=== PATIENT | female | born 1960 | race Caucasian/White ===

== ENCOUNTER 2024-10-28 22:07 | Inpatient (IN) | payer OTHER, SELFPAY ==
[2024-10-28] VITALS (7 sets, daily range): BP systolic 104–156; BP diastolic 66–98; BMI 22.1
[2024-10-28 17:22] LABS: % Basophils 0.2 % (0-2); % Eosinophils 0.9 % (0-6); % Immature Granulocytes 0.3 % (0-0.5); % Lymphocytes 16.8 % (20.5-51.1); % Monocytes 9.1 % (1.7-9.3); % Neutrophils 72.7 % (42.2-75.2); Absolute Eosinophils 0.1 10^3/uL (0-0.7); Absolute Lymphocytes 1.8 10^3/uL (1.2-3.4); Absolute Neutrophils 7.8 10^3/uL (1.4-6.5); Hematocrit 43.4 % (37.0-47.0); Hemoglobin 14.8 g/dL (12.0-16.0); Mean Corp Hgb Conc. 34.1 g/dL (33.0-37.0); Mean Corpuscular Hgb 31.1 pg (27.0-31.0); Mean Corpuscular Volume 91.2 fL (81.0-99.0); Mean Platelet Volume 8.7 fL (7.4-10.4); Nucleated Red Blood Cells % 0 %; Platelet Count 258 10^3/uL (130-400); Red Blood Cell Count 4.76 10^6/uL (4.20-5.40); Red Cell Dist. Width 11.9 % (11.5-14.5); White Blood Cell Count 10.7 10^3/uL (4.8-10.8)
[2024-10-28 17:43] LABS: ALT (SGPT) 35 U/L (0-35); AST (SGOT) 28 U/L (14-36); Albumin 4.6 g/dl (3.5-5.0); Alkaline Phosphatase 85 U/L (38-126); Blood Urea Nitrogen 16 mg/dl (7-17); Carbon Dioxide 30 mmol/L (22-30); Chloride 99 mmol/L (98-107); Glucose 151 mg/dl (70-99); Potassium 4.5 mmol/L (3.5-5.1); Sodium 138 mmol/L (135-145); Total Bilirubin 0.6 mg/dl (0.2-1.3); Total Protein 7.6 g/dl (6.3-8.2); eGFR > 60.00
[2024-10-28 17:45] LABS: COVID-19 Antigen Negative (Negative)
[2024-10-28] MEDS: DECADRON 10 MG IV (19:42)
[2024-10-28] MEDS: DUONEB 3 ML INH ×2 (19:42→20:54)
--- NOTE | 2024-10-28 20:36 | ED.GENMED ---
History of Present Illness
General
Chief Complaint: Breathing Problem
Source: patient
Exam Limitations: none
Time Seen by Provider: 10/28/24 19:12
Nursing documentation reviewed up to this point in time: agreed with
History of Present Illness
History of Present Illness:
64-year-old female past medical history of hypertension hyperlipidemia, COPD presenting to the emergency department today with concerns of upper respiratory symptoms over the past 9 days. Seem to start with likely viral syndrome was seen in urgent
care 4 days ago was told that she had bronchitis and was sent home. She claims that she does have a remote history of PE not currently anticoagulated. She was concerned that this was a possibility. Denies specific chest pain but has had shortness
of breath. Has had ongoing cough.
Past History
Past History
ED Past Medical History: COPD, HTN and Hypercholesterolemia
ED Past Surgical History: None
Patient has exhibited threatening behavior?: No
Social History
Tobacco: Former smoker (Quit 5 to 6 years ago)
Alcohol: None
Personal: Single
Living: with family (Resides with her daughter)
Employment: Employed
Family History
Family History: Other (Noncontributory)
Review of Systems
Review of Systems
Allergies reviewed?: Yes
All Other Systems: ROS reviewed and negative except as documented in HPI and ROS
Phy Exam
Physical Exam
Physical Exam:
GENERAL: Alert , in no apparent distress
EYE: pupils equal and reactive
NECK: Supple, no significant adenopathy.
ENT: o/p clr, mmm.
CARDIAC: Regular rate and rhythm .
LUNGS: Diffuse expiratory wheezing
ABDOMEN: Soft, without focal tenderness, no r/g, no cvat
NEUROLOGICAL: Alert and oriented, no focal neuro deficits
SKIN: Warm and dry, skin intact.
MUSCULOSKELETAL: No edema, well perfused.
PSYCH: Normal and appropriate interaction.
Scores
Heart Failure Risk
Heart Failure Risk Score: Not Applicable
Course
Orders/Labs/Results
Orders:
Orders
10/28/24 17:05
Electrocardiogram (*1) Urgent
Reason for Study: Shortness of Breath
EKG- Treatment ONCE
10/28/24 17:14
COVID-19 Antigen Urgent
Source: Nasal Swab
Complete Blood Count/With Diff Urgent
Comprehensive Metabolic Panel Urgent
Influenza A+B Rapid Molecular Urgent
JENNIFER Source: Nasal Swab
Specimen Description:
10/28/24 19:31
CT Chest PE Study Urgent
Comment:
Reason For Exam: CP sob, hx of PE not anticoagulated
Dexamethasone Sod Phosphate [Decadron] 10 mg IV NOW STA
Ipratropium/Albuterol Sulfate [Duoneb] 3 ml INH R NOW ONE
10/28/24 20:48
Ipratropium/Albuterol Sulfate [Duoneb] 3 ml INH R NOW ONE
10/28/24 20:49
0.9% Sodium Chloride 1000 ml [Nss] 1,000 ml IV BOLUS
Abnormal Lab Results
10/28/24
17:14
MCH 31.1 H pg
(27.0-31.0)
Absolute Neuts (auto) 7.8 H 10^3/uL
(1.4-6.5)
Absolute Monos (auto) 1.0 H 10^3/uL
(0.1-0.6)
Lymphocytes % 16.8 L %
(20.5-51.1)
Glucose 151 H mg/dl
(70-99)
10/28/24 17:14
10/28/24 17:14
Vital Signs
Initial and Last Documented VS:
Initial Vital Signs
Temp Pulse Resp BP Pulse Ox
97.9 F 130 18 156/98 94
10/28/24 17:00 10/28/24 17:00 10/28/24 17:00 10/28/24 17:00 10/28/24 17:00
Last Documented Vital Signs
Temp Pulse Resp BP Pulse Ox
97.9 F 112 22 104/73 100
10/28/24 17:00 10/28/24 20:02 10/28/24 20:02 10/28/24 20:02 10/28/24 20:02
MDM/Problems Addressed
MDM/Problems Addressed:
64-year-old female presenting to the emergency department with concerns of shortness of breath cough. Here on arrival vital signs showing elevated heart rate slightly hypertensive. Patient did have some wheezing on examination was given a DuoNeb
as well as a steroid did have improving heart rate blood pressure. Labs without emergent findings. EKG here normal. Patient does have a history of PE with worsening shortness of breath and tachycardia concerning the CT PE was performed. CT PE
without emergent findings. Nodule was seen. This was explained to the patient she claims that she is aware of this and does follow-up as an outpatient for this. Otherwise patient with ongoing wheezing here amatory pulse ox performed with pulse ox
dropping to the mid 80s she appeared very short of breath while doing so. Considering this patient was ordered additional nebulizer treatment will be admitted overnight for further treatment and monitoring.
*Critical Care Note
Total Time (30-74mins, 75-104mins- exclusive of procedures): Not Applicable
ED Attending Note
-
Portions of this chart may have been created with voice recognition software.� Occasional wrong word or��sound alike� substitutions may have occurred due to the inherent limitations of voice recognition software.
Discharge Plan
Departure
Patient Disposition: Admit
Date of Disposition: 10/28/24
Time of Disposition: 20:52
Admit to: Med/Surg
Admit to doctor: Ever
Presentation/result/management discussed w/ accepting MD/DO: Hospitalist
Patient with high blood pressure during this ER visit?: No
Condition: Good
Covid-19: Not Applicable
Discharge Problem:
COPD exacerbation
Prescriptions:
No Action
lisinopril 10 MG tablet
10 mg PO HS
ascorbic acid (vitamin C) [Vitamin C] 500 MG tablet
500 mg PO DAILY
zinc 50 MG tablet
50 mg PO DAILY
metformin 500 MG tablet extended release 24 hr
1,000 mg PO QPM@1700
multivitamin with folic acid [Tab-A-Bolivar] 1 TABLET tablet
1 tab PO DAILY
levalbuterol HCl 1.25 MG/3 ML solution for nebulization
1.25 mg inhalation R Q6HPRN PRN (Reason: sob wheezing) 30 Days Qty: 120 0RF
azelastine 1 SPRAY aerosol,spray
2 spray intranasal BID 30 Days Qty: 1 0RF
apixaban [Eliquis] 5 MG tablet
5 mg PO BID 30 Days Qty: 60 2RF
Rx Instructions:
start after 1st week dosing eliquis completed
sennosides-docusate sodium 1 TABLET tablet
1 tab PO BIDPRN PRN (Reason: constipation) 7 Days Qty: 14 0RF
benzonatate 100 MG capsule
100 mg PO TIDPRN PRN (Reason: cough) 7 Days Qty: 21 0RF
budesonide 0.5 MG/2 ML suspension for nebulization
0.5 mg inhalation R BID 30 Days Qty: 60 0RF
albuterol sulfate 1 PUFF HFA aerosol inhaler
2 puff inhalation R Q4HPRN PRN (Reason: sob/wheezing)
guaifenesin [Mucus Relief ER] 600 MG tablet extended release 12hr
1,200 mg PO Q12H
amoxicillin-pot clavulanate 1 TABLET tablet
1 tab PO Q12 7 Days Qty: 14 0RF
Referrals:
NONE,* [Family Provider] -
Interventions
Interventions:
*Risk Screen - Suicide Last Done: 10/28/24 17:00
*General Assessment Last Done: 10/28/24 17:00
*Neglect/Abuse Screening Last Done: 10/28/24 17:00
*ED- Fall Risk Assessment Last Done: 10/28/24 19:35
*ED COVID-19 Vaccine History Last Done: 10/28/24 17:00
ED- Cardiac Assessment Last Done: 10/28/24 19:35
ED- Pulmonary Assessment Last Done: 10/28/24 19:35
Discharge Date and Time
Print Language: CONGOLESE
[2024-10-28] MEDS: NSS 1000 IV (20:54)
--- NOTE | 2024-10-28 21:46 | HPS.HSE ---
Family Physician
-
Family Physician: Tameka Foster
Chief Complaint
-
Cough and shortness of breath
History of Present Illness
64-year-old female with past medical history significant for COPD, prior history of pulmonary embolism status post anticoagulation now off, hypertension, hyperlipidemia who presents to the emergency department after several days of cough productive
of greenish sputum and mild shortness of breath.
Patient reports that symptoms began several days ago initially with to nasal congestion on rhinorrhea and then cough productive of clear sputum. 3 days ago she was started on cefprozil for acute bronchitis. Despite this medication the patient has
been having worsening shortness of breath ongoing productive cough. She also reports some dyspnea on exertion. She denies fevers or chills. She has no known sick contacts. She denies any recent travel.
Patient reports history of pneumonia about 3 years ago. Denies any recent hospitalizations. Denies recurrent episodes of acute bronchitis requiring steroids or antibiotics. She does use Trelegy at home daily. She denies smoking. She has no
history of congestive heart failure. Denies peripheral edema orthopnea or PND. She denies having any chest pain. She came to the emergency department due to concern of recurrence of pulmonary embolism.
In the Emergency Department she was initially treated with names and steroids. She was ambulated and then she desatted to the low 80s.
She had a temp of nine 7.9, blood pressure was 120/69 and she was tachycardic to 105 with respiratory rate of 20. ECG with sinus tachycardia at 120, and unchanged from prior. CBC was unremarkable. Electrolytes BUN/creatinine were all in normal
range. COVID test was negative. Elicited was negative.
CT of the chest with PE protocol was negative for PE. It did show the old numerous bilateral upper lobe groundglass opacities and small nodules which could be consistent with infection. There is a 1 cm slightly irregular subpleural nodule in the
posterior left upper lobe apex for which malignancy cannot be excluded. Recommend PET scan with dual point imaging.
Medical History
Past Medical History
Past Medical History: Reports COPD, NIDDM and Other (Pulmonary embolism status post anticoagulation now completed in 2022.)
Past Surgical History: Reports Cholecystectomy and Gynocological (Tube ligation)
Social History
Tobacco: Former Smoker
Alcohol: Occasional
Drug: None
Personal:
Living: With Family
Family History
Family History: Not pertinent
Allergies / Home Medications
Allergies reflects when Allergies were last updated in [employer].
Home Medications with original date entered in [employer]
Allergy/Medication List:
Allergies
Allergy/AdvReac Type Severity Reaction Status Date / Time
No Known Allergies Allergy Verified 10/28/24 17:04
Home Medications
ascorbic acid (vitamin C) 500 mg tablet (Vitamin C) 500 mg PO DAILY Supplement 08/13/21
lisinopril 10 mg tablet 10 mg PO HS Blood pressure 08/13/21
metformin 500 mg tablet,extended release 24 hr 1,000 mg PO QPM@1700 Diabetes 08/13/21
multivitamin with folic acid 400 mcg tablet (Tab-A-Bolivar) 1 tab PO DAILY Supplement 08/13/21
zinc 50 mg tablet 50 mg PO DAILY Supplement 08/13/21
apixaban 5 mg tablet (Eliquis) 5 mg PO BID 30 days #60 tabs 08/15/21
azelastine 137 mcg (0.1 %) nasal spray 2 spray intranasal BID 30 days ##1 08/15/21
benzonatate 100 mg capsule 100 mg PO TIDPRN PRN cough 7 days #21 caps 08/15/21
budesonide 0.5 mg/2 mL suspension for nebulization 0.5 mg (2 mL) inhalation R BID 30 days ##60 08/15/21
levalbuterol HCl 1.25 mg/3 mL solution for nebulization 1.25 mg (3 mL) inhalation R Q6HPRN PRN sob wheezing 30 days ##120 08/15/21
sennosides 8.6 mg-docusate sodium 50 mg tablet 1 tab PO BIDPRN PRN constipation 7 days #14 tabs 08/15/21
albuterol sulfate 90 mcg/actuation aerosol inhaler 2 puff inhalation R Q4HPRN PRN sob/wheezing 08/25/21
guaifenesin 600 mg tablet, extended release 12 hr (Mucus Relief ER) 1,200 mg PO Q12H Congestion 08/25/21
amoxicillin 875 mg-potassium clavulanate 125 mg tablet 1 tab PO Q12 7 days #14 tabs 08/27/21
Review of Systems
-
History Source: Patient
Constitutional: Reports No Symptoms
EENT: Reports Runny Nose
Respiratory: Reports Cough and Trouble Breathing
Cardiac: Reports No Symptoms
Abdomen/GI: Reports No Symptoms
: Reports No Symptoms
Musculoskeletal: Reports No Symptoms
Skin: Reports No Symptoms
Neurological: Reports No Symptoms
Endocrine: Reports No Symptoms
Hematologic/Lymphatic: Reports No Symptoms
Psych: Reports No Symptoms
Physical Exam
Vital Signs
Vital Signs
Temp Pulse Resp BP Pulse Ox
97.9 F 105 20 119/69 97
10/28/24 17:00 10/28/24 21:00 10/28/24 21:00 10/28/24 21:00 10/28/24 21:00
Physical Exam
General: Well Developed and Comfortable
HEENT: NormoCephalic, Anicteric, Moist mucous membranes and Atraumatic
Respiratory: Wheezes, Accessory Resp Muscle Use and Decreased Breath Sounds
Cardiac: S1/S2 and Regular Rhythm
Breast: Deferred by me
GI: Soft, Non Tender, Non Distended and Normal Bowel Sounds
Rectal: Deferred by Provider
Genito-urinary: Deferred by me
Musculoskeletal: No Clubbing, No Cyanosis and No Edema
Neuro: AO x 3 and Nonfocal/grossly intact
Hematologic/Lymphatic: No Lymphadenopathy
Psych: Calm
Laboratory Results
-
10/28/24 17:14
10/28/24 17:14
Laboratory Results
Total Bilirubin 0.6 mg/dl (0.2-1.3) 10/28/24 17:14
AST 28 U/L (14-36) 10/28/24 17:14
ALT 35 U/L (0-35) 10/28/24 17:14
Alkaline Phosphatase 85 U/L (38-126) 10/28/24 17:14
Data Reviewed
-
CT Scan: Report Reviewed by me
Medical Tests (Nuc Med, Echo, EKG etc): Image Personally Visualized and interpreted
Lab Data: Labs Reviewed by me
Old Records: Reviewed
Impression/Plan
-
IMPRESSION:
64-year-old female former tobacco smoker, COPD on Trelegy, presenting with a few days of upper respiratory symptoms and now with productive cough, shortness of breath and hypoxia on ambulation. X-ray with upper lobe groundglass opacities. There is
a left upper lobe 1 cm nodule R opacity. She is afebrile, hemodynamically stable and nontoxic-appearing otherwise. No evidence of acute pulmonary embolism.
PLAN:
1. Acute Exacerbation of COPD
- admit to med/surg
- sputum culture
- cov/flu neg
- on cefprozil x 3 days
- oral prednisone, IV azithromycin
- duonebs RTC and prn
- supportive measures
- given pulmonary nodule, consulted pulmonary, possible PET scan
2. DM II
- sliding scale insulin, hold metformin x 48 hours s/p contrast
3. H/O PE. Completed course of eliquis. No longer on AC. No PE on CT
DVT PPX - lovenox sq
Code Status - Full Code
[2024-10-28] MEDS: ZITHROMAX INFUSION 250 IV (22:19)
[2024-10-28] MEDS: FLUSH (NSS) 1 FLUSH IV (22:20)
[2024-10-29 00:01] VITALS: BP 150/75
[2024-10-29 00:27] VITALS: BP 148/82
[2024-10-29 00:28] VITALS: BMI 21.5
[2024-10-29 00:34] LABS: Glucose - Point of Care 243 mg/dl (70-99)
--- NOTE | 2024-10-29 00:39 | PTCARENOTE ---
Pt arrived to floor via stretcher from the ED> Pt AAOx3, ambulatory from stretcher to room without difficulty. Tachycardic HR in the 120's. POX 94% on 2 LO2 NC, MALONE, tachypneic. Lungs dec with ex wheezes. Harsh moist productive cough, pt instructed
on need for sputum sample, specimen cup at bedside. + bowel, round abd. Palpable peripheral pulses. Right AC int capped. Pt denies any complaints at this time. Call eduardo in reach. Will continue to monitor.
[2024-10-29] MEDS: DUONEB 3 ML INH ×4 (07:12→20:20)
[2024-10-29 07:27] VITALS: BP 133/71
--- NOTE | 2024-10-29 07:59 | CON.PUL ---
Consultation
Consultation Request
Date/Time Consultation Requested: 10/29
Date/Time Consultation Performed: 10/29
Reason for Consultation: Shortness of breath
Medical History
-
History of Present Illness:
History obtained from the patient, reviewing both inpatient and outpatient records. Patient is a 64-year-old female with a plus pack-year history of smoking quit around 2019, history of known COPD, pneumonia, thromboembolic disease, does not
follow-up with pulmonary since 2021. Symptoms started about 10 days ago with URI symptoms. She completed a COVID/flu home test which was negative. Symptoms worsen, went to urgent care 10/24/2024, was given antibiotics with no improvement. He now
presents with progressive shortness of breath. With this she has some occasional chest tightness, nausea, diarrhea, low-grade fevers but this is difficult as she was taking Tylenol [id number] at home. Upon arrival to [facility],
chest exam diffuse expiratory wheezing. CT chest obtained which was negative for pulm embolism. Patient was given nebulized therapy, steroids. Initial pulse 130, afebrile, blood pressure 156/98, 94%. Per ED records, ambulatory saturation
decreased to mid 80s, admitted for COPD exacerbation
.
PMH: Hypertension, hyperlipidemia, diabetes, history of COPD, history of multisegmental pulmonary embolism 2019, in the setting of bilateral community-acquired pneumonia. History of cholecystectomy, tubal ligation.
Past Medical History
Past Medical History: None (See above)
Past Surgical History: None (See above)
Social History
Tobacco: Former Smoker ([id number], quit 2019)
Alcohol: None
Drug: None
Personal:
Living: With Family
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
Environmental Exposures: No pets
Family History
Family History: Reviewed & Not Pertinent (3 brothers, 1 sister. There is a family history of cancer, head and neck cancer, possibly lung cancer. Children are healthy. Family history negative for blood clots. Siblings also with COPD/emphysema.
Father age 42 from heart attack, mother sepsis age 81)
Allergies / Home Medications
Allergies
Allergy/AdvReac Type Severity Reaction Status Date / Time
No Known Allergies Allergy Verified 10/28/24 17:04
Home Medications
�Medication �Instructions �Recorded �Confirmed �Last Taken �Type
ascorbic acid (vitamin C) 500 mg 500 mg PO DAILY Supplement 08/13/21 08/25/21 Unknown History
tablet (Vitamin C)
lisinopril 10 mg tablet 10 mg PO HS Blood pressure 08/13/21 08/25/21 Unknown History
metformin 500 mg tablet,extended 1,000 mg PO QPM@1700 Diabetes 08/13/21 08/25/21 Unknown History
release 24 hr
multivitamin with folic acid 400 1 tab PO DAILY Supplement 08/13/21 08/25/21 Unknown History
mcg tablet (Tab-A-Bolivar)
zinc 50 mg tablet 50 mg PO DAILY Supplement 08/13/21 08/25/21 Unknown History
apixaban 5 mg tablet (Eliquis) 5 mg PO BID 30 days #60 tabs 08/15/21 08/25/21 Unknown Rx
azelastine 137 mcg (0.1 %) nasal 2 spray intranasal BID 30 days ##1 08/15/21 08/25/21 Unknown Rx
spray
benzonatate 100 mg capsule 100 mg PO TIDPRN PRN cough 7 days 08/15/21 08/25/21 Unknown Rx
#21 caps
budesonide 0.5 mg/2 mL suspension 0.5 mg (2 mL) inhalation R BID 30 08/15/21 08/25/21 Unknown Rx
for nebulization days ##60
levalbuterol HCl 1.25 mg/3 mL 1.25 mg (3 mL) inhalation R Q6HPRN 08/15/21 08/25/21 Unknown Rx
solution for nebulization PRN sob wheezing 30 days ##120
sennosides 8.6 mg-docusate sodium 1 tab PO BIDPRN PRN constipation 7 08/15/21 08/25/21 Unknown Rx
50 mg tablet days #14 tabs
albuterol sulfate 90 mcg/actuation 2 puff inhalation R Q4HPRN PRN 08/25/21 08/25/21 Unknown History
aerosol inhaler sob/wheezing
guaifenesin 600 mg tablet, 1,200 mg PO Q12H Congestion 08/25/21 08/25/21 Unknown History
extended release 12 hr (Mucus
Relief ER)
amoxicillin 875 mg-potassium 1 tab PO Q12 7 days #14 tabs 08/27/21 Unknown Rx
clavulanate 125 mg tablet
Review of Systems
-
All other systems: Negative unless noted
Vitals / Labs / Diagnostic Testing
Vital Signs
Temp Pulse Resp BP Pulse Ox
97.5 F 98 18 133/71 93
10/29/24 07:27 10/29/24 07:27 10/29/24 07:27 10/29/24 07:27 10/29/24 07:27
Lab Data
10/28/24 17:14
Microbiology
10/28/24 17:14 Nasal Swab Influenza Types A & B (LAUREL) - Final
Negative for Influenza A & B, NAAT
Negative results must be combined with clinical observations
and patient history.
Nucleic Acid Amplification test (NAAT)performed on the
[employer] platform.
Diagnostic Testing:
Physical Exam
-
HEENT: Normocephalic and Anicteric
Cardiovascular: S1/S2, Regular Rhythm, Murmur (n), Rub (n) and Peripheral Edema (n)
Respiratory: Wheeze (Mild), Rales (n), Rhonchi (n), Non-Labored Respirations and Other (Poor air movement)
GI: Soft, Non Distended and Non Tender
Neurology: Awake, Alert, Oriented and No Motor Deficits (Able to sit up without assistance)
Skin: Warm and Good Color
General: Comfortable
Assessment
-
64-year-old female with history of COPD, 80+ pack year history of tobacco use, history of thromboembolic disease, presents with 10 days of worsening URI symptoms, respiratory symptoms, admitted for COPD exacerbation failed outpatient antibiotic
therapy
Acute COPD exacerbation
URI symptoms, shortness of breath, chest pain x 10 days
Negative home flu/COVID test
80+ pack-year history of smoking
Acute hypoxic respiratory insufficiency
85% post ambulation in ED
Conditions present prior to admission
History of pulmonary nodules, followed as outpatient
Last seen by pulmonary 2021, noncompliant with follow-up
9 mm left apical nodule per CT imaging
History of multisegmental pulm embolism 2020
Admitted [facility]
Hypertension/hyperlipidemia
History of diabetes
History of hypoxia, requiring 2 L oxygen back in 2020
DLCO 45% as outpatient
Family history of cancer (breast, head and neck, questionable lung)
Environmental exposure (cleaning products)
Plan/recommendations
At this time, patient appears to be subjectively improved post admission
Hypoxia noted in the ED, 85%
Presently on nasal cannula without use of accessory muscles
Chest exam with decreased breath sounds, minimal wheezing
EKG with sinus tachycardia, right atrial enlargement, prior septal infarct
Echocardiogram from 2021 normal biventricular function, normal PA pressure
Moving forward
At this time, patient appears to be comfortable
Chest exam appears to be improved
Sinus tachycardia noted, EKG changes noted
Chest pain has resolved
Continue with empiric steroid therapy, nebulized therapy
Patient has been compliant with outpatient Trelegy inhaler
Continue with 24 hours of IV steroids, reassess ambulatory saturation 10/30
May require repeat echocardiogram pending resolution of hypoxia
CT chest negative for pulm embolism
Continue antibiotic therapy, transition to oral azithromycin
No change in steroid therapy for now, continue prednisone 50 mg
Follow blood sugars, history of diabetes noted
Discussed importance of pulmonary follow-up
Last seen by pulmonary in 2021, FEV1 36% at that time, DLCO 48%, hypoxia had resolved post pulm embolism
Discussed importance of follow-up post discharge
Disposition efforts
[2024-10-29] MEDS: DELTASONE 50 MG PO (08:38)
[2024-10-29] MEDS: MUCINEX 600 MG PO ×2 (08:38→19:41)
[2024-10-29] MEDS: ZESTRIL 10 MG PO (08:38)
[2024-10-29] MEDS: LEXAPRO 10 MG PO (08:39)
[2024-10-29 08:52] LABS: Glucose - Point of Care 233 mg/dl (70-99)
--- NOTE | 2024-10-29 09:07 | W.PN.HOSP.TC ---
Today's Communication/Plan
-
wean O2 as able
motrin for PENG
steroids, nebs
appreciate pulm
Assessment / Plan
Assessment / Plan
64-year-old female with past medical history significant for COPD, prior history of pulmonary embolism status post anticoagulation now off, hypertension, hyperlipidemia who presents to the emergency department after several days of cough productive
of greenish sputum and mild shortness of breath.
CT Chest
IMPRESSION:
No evidence of central pulmonary embolism.
Approximate 1 cm slightly irregular subpleural nodule in the posterior left upper lobe apex for which malignancy cannot be excluded. Recommend PET scan with dual point imaging.
Small nonspecific areas of groundglass opacity in the upper lobes bilaterally. These may be below the limits of resolution of PET imaging.
Acute COPD Exacerbation
- sputum culture
- cov/flu neg
- Azithromycin 500mg PO QD
- oral prednisone, IV azithromycin
- duonebs RTC and prn
- supportive measures
-outpatient pulm follow up
Lung Nodule
-will need PET ordered as outpatient
Essential HTN
-[employer] Lisinopril
DVT PPx Lovenox subQ
FULL CODE
Anticipated Discharge: 24 - 48 hours
Subjective/Interval History
-
Date of Service: October 29, 2024
has a headache
breathing much improved
Objective Data
-
Labs:
Laboratory Results
10/29/24
06:00
Sodium Pending
Potassium Pending
Chloride Pending
Carbon Dioxide Pending
BUN Pending
Creatinine Pending
Glucose Pending
Calcium Pending
Vital Signs:
Vital Signs
Temp Pulse Resp BP Pulse Ox
97.5 F 98 18 133/71 97
10/29/24 07:27 10/29/24 07:27 10/29/24 07:27 10/29/24 07:27 10/29/24 08:43
I&O
10/28/24 10/29/24 10/30/24
06:59 06:59 06:59
Intake Total 480 / 480
Balance 480 / 480
Review of Systems
-
History Source: Patient
All other systems: Reviewed and negative
Physical Exam
-
General: No Apparent Distress
HEENT: PERRLA
Respiratory: Clear to Auscultation and Decreased Breath Sounds; Negative Wheezes
Cardiac: S1/S2
GI: Soft and Nontender
Musculoskeletal: No Edema
Skin: Warm and Dry; Negative Rash
Neuro: AO x 3
Psych: Calm
Data Reviewed
-
Diagnostic Radiology: Report Reviewed by me
Labs: Labs Reviewed by me
--- NOTE | 2024-10-29 10:03 | CM ---
Patient seen at bedside
DX: copd exacerbation
Pulmonary consult
IA completed
Lives in a 1 story home with , no steps to enter
PLOF: Independent
Denies DME
Denies VN/Rehab
PCP: Tameka Foster
Pharmacy: [facility], [facility], [place]
PLAN: discharge when medically stable, home, no needs anticipated
states will transport
[2024-10-29 10:50] LABS: Blood Urea Nitrogen 15 mg/dl (7-17); Calcium 9.5 mg/dl (8.4-10.2); Carbon Dioxide 25 mmol/L (22-30); Chloride 99 mmol/L (98-107); Estimated Creatinine Clearance 93 ml/min; Glucose 266 mg/dl (70-99); Potassium 4.5 mmol/L (3.5-5.1); Sodium 135 mmol/L (135-145); eGFR > 60.00
[2024-10-29] MEDS: NOVOLOG FLEXPEN-LOW RESISTANCE SC (11:07)
[2024-10-29] MEDS: MOTRIN 600 MG PO ×2 (11:46→21:09)
[2024-10-29] MEDS: NOVOLOG FLEXPEN-LOW RESISTANCE 3 UNITS SC (12:24)
[2024-10-29 12:35] LABS: Glucose - Point of Care 291 mg/dl (70-99)
[2024-10-29 15:24] VITALS: BP 112/67
[2024-10-29] MEDS: CRESTOR 10 MG PO (17:24)
[2024-10-29] MEDS: LOVENOX 40 MG SC (17:24)
[2024-10-29] MEDS: NOVOLOG FLEXPEN-LOW RESISTANCE 5 UNITS SC (17:28)
[2024-10-29 17:38] LABS: Glucose - Point of Care 354 mg/dl (70-99)
[2024-10-29] MEDS: LANTUS 0.06 UNITS SC (17:43)
[2024-10-29] MEDS: ZITHROMAX 500 MG PO (21:08)
[2024-10-29] MEDS: ROBITUSSIN 200 MG PO (21:09)
[2024-10-29 23:03] VITALS: BP 130/71
[2024-10-30 07:15] LABS: Glucose - Point of Care 137 mg/dl (70-99)
[2024-10-30] MEDS: DUONEB 3 ML INH ×2 (07:19→10:54)
[2024-10-30 07:39] VITALS: BP 125/68
[2024-10-30] MEDS: NOVOLOG FLEXPEN-LOW RESISTANCE SC (07:39)
[2024-10-30] MEDS: ZESTRIL 10 MG PO (07:42)
[2024-10-30] MEDS: MUCINEX 600 MG PO (07:42)
[2024-10-30] MEDS: LEXAPRO 10 MG PO (07:42)
[2024-10-30] MEDS: DELTASONE 50 MG PO (07:42)
--- NOTE | 2024-10-30 08:25 | W.PN.PUL3 ---
Today's Communication / Plan
-
Ambulatory saturation on room air
Continue prednisone, taper as below
Case management to set up home nebulizer with albuterol as needed
Complete 7-day course of azithromycin
At time of discharge, resume Trelegy
Will require short-term follow-up in pulmonary office
Assessment
-
64-year-old female with history of COPD, 80+ pack year history of tobacco use, history of thromboembolic disease, presents with 10 days of worsening URI symptoms, respiratory symptoms, admitted for COPD exacerbation failed outpatient antibiotic
therapy
Acute COPD exacerbation
URI symptoms, shortness of breath, chest pain x 10 days
Negative home flu/COVID test
80+ pack-year history of smoking
Acute hypoxic respiratory insufficiency
85% post ambulation in ED
Conditions present prior to admission
History of pulmonary nodules, followed as outpatient
Last seen by pulmonary 2021, noncompliant with follow-up
9 mm left apical nodule per CT imaging
History of multisegmental pulm embolism 2020
Admitted [facility]
Hypertension/hyperlipidemia
History of diabetes
History of hypoxia, requiring 2 L oxygen back in 2020
DLCO 45% as outpatient
Family history of cancer (breast, head and neck, questionable lung)
Environmental exposure (cleaning products)
Plan/recommendations
At this time, patient appears to be subjectively improved post admission
Hypoxia noted in the ED, 85%
Currently 97% on 1 L
Appears more comfortable, less use of accessory muscles
Chest exam with decreased breath sounds, minimal wheezing
EKG with sinus tachycardia, right atrial enlargement, prior septal infarct
Echocardiogram from 2021 normal biventricular function, normal PA pressure
Moving forward
At this time, patient appears to be improved
Chest exam appears to be improved
Sinus tachycardia noted, EKG changes noted
Chest pain has resolved
Continue with empiric steroid therapy, nebulized therapy
Patient has been compliant with outpatient Trelegy inhaler
Continue with 24 hours of IV steroids, reassess ambulatory saturation 10/30
May require repeat echocardiogram pending resolution of hypoxia, but appears to be moving the right direction
CT chest negative for pulm embolism
She does have some mild biapical pleural-parenchymal scarring and nodular changes along with patchy groundglass changes bilaterally per my review
Will require follow-up imaging as outpatient
Continue antibiotic therapy, transition to oral azithromycin
Continue prednisone, will decrease to 40 mg. Will require slow taper, 10 mg every 3 days until off
Follow blood sugars, history of diabetes noted
Discussed importance of pulmonary follow-up
Last seen by pulmonary in 2021, FEV1 36% at that time, DLCO 48%, hypoxia had resolved post pulm embolism
Discussed importance of follow-up post discharge. Reviewed CT findings including prior nodule
Disposition efforts
Subjective Data
-
Date of Service:
Date of Service: October 30, 2024
Subjective:
Patient is feeling better today. She is less short of breath. She denies cough, chest pain, lightheadedness, dizziness, abdominal pain. She is tremulous from steroids but appears to be in good spirits
Objective Data
Data Reviewed
Vital Signs / I&O / Oxygen:
Vital Signs
Temp Pulse Resp BP Pulse Ox
97.7 F 68 17 125/68 96
10/30/24 07:39 10/30/24 07:42 10/30/24 07:39 10/30/24 07:42 10/30/24 07:39
Intake and Output
10/29/24 10/30/24 10/31/24
06:59 06:59 06:59
Intake Total 480 / 480 480 / 480
Balance 480 / 480 480 / 480
SaO2 96
Nasal Cannula flow liters per 2
minute
Physical Exam
General: Comfortable
HEENT: Normocephalic, Anicteric and Moist Mucous Membranes
Cardiovascular: S1-S2, Regular Rhythm, Murmur (n), Rub (n) and Peripheral Edema (n)
Respiratory: Wheeze (mild), Crackles (n), Rhonchi (n), Non-Labored Respirations, Stridor (n) and Other (Decreased, bronchial)
GI: Soft, Non Distended and Non Tender
Neurology: Awake, Alert, No Motor Deficits (Moves all extremities, muscle strength 5/5) and Other (Mildly tremulous)
Skin: Cyanosis (n), Jaundice (n) and Rash (n)
Labs/Micro/Reports
Lab Data
10/28/24 17:14
10/29/24 09:46
Microbiology
10/29/24 08:47 Sputum Gram Stain - Preliminary
10/28/24 17:14 Nasal Swab Influenza Types A & B (LAUREL) - Final
Negative for Influenza A & B, NAAT
Negative results must be combined with clinical observations
and patient history.
Nucleic Acid Amplification test (NAAT)performed on the
[employer] platform.
--- NOTE | 2024-10-30 09:44 | W.PN.HOSP.TC ---
Addendum entered and electronically signed by Meaghan Dubois MD 10/30/24 12:47:
Patient needs a nebulizer due to chronic lung disease.
Original Note:
Today's Communication/Plan
-
home O2 testing, if doesn't require O2 then OK for home DC
CM consult for nebulizer
Assessment / Plan
Assessment / Plan
64-year-old female with past medical history significant for COPD, prior history of pulmonary embolism status post anticoagulation now off, hypertension, hyperlipidemia who presents to the emergency department after several days of cough productive
of greenish sputum and mild shortness of breath.
CT Chest
IMPRESSION:
No evidence of central pulmonary embolism.
Approximate 1 cm slightly irregular subpleural nodule in the posterior left upper lobe apex for which malignancy cannot be excluded. Recommend PET scan with dual point imaging.
Small nonspecific areas of groundglass opacity in the upper lobes bilaterally. These may be below the limits of resolution of PET imaging.
Acute COPD Exacerbation
- sputum culture
- cov/flu neg
- Azithromycin 500mg PO QD
- oral prednisone
- duonebs RTC and prn - CM consult for home nebulizer
- supportive measures
-outpatient pulm follow up
-home O2 testing - if doesn't require oxygen will set up DC
Lung Nodule
-will need PET ordered as outpatient
Essential HTN
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
DVT PPx Lovenox subQ
FULL CODE
Anticipated Discharge: Within 24 hours
Subjective/Interval History
-
Date of Service: October 30, 2024
feeling better
coughing up mucus
Objective Data
-
Vital Signs:
Vital Signs
Temp Pulse Resp BP Pulse Ox
97.7 F 68 17 125/68 97
10/30/24 07:39 10/30/24 07:42 10/30/24 07:39 10/30/24 07:42 10/30/24 07:40
I&O
10/29/24 10/30/24 10/31/24
06:59 06:59 06:59
Intake Total 480 / 480 480 / 480
Balance 480 / 480 480 / 480
Review of Systems
-
History Source: Patient
All other systems: Reviewed and negative
Physical Exam
-
General: No Apparent Distress
HEENT: PERRLA
Respiratory: Clear to Auscultation and Decreased Breath Sounds; Negative Wheezes
Cardiac: S1/S2
GI: Soft and Nontender
Musculoskeletal: No Edema
Skin: Warm and Dry; Negative Rash
Neuro: AO x 3
Psych: Calm
Data Reviewed
-
Diagnostic Radiology: Report Reviewed by me
Labs: Labs Reviewed by me
--- NOTE | 2024-10-30 10:04 | PHANOTE ---
med rec note- patient has all her bottles with her, asked to clarify metformin dose, she has been taking three, she had the bottle with her (dated 10/21/24) that read two a day, she was not aware it was 2 tablet and she believe someone at her md
office told her to take three.
--- NOTE | 2024-10-30 10:55 | PTCARENOTE ---
pt weaned to RA. ambulatory PO on RA remained greater than 91%
--- NOTE | 2024-10-30 11:10 | CM ---
CM following re: discharge planning.
Reviewed pt's chart, met with pt.
According to pt most likely will be discharged home today and pt will need nebulizer machine with Albuterol treatment. Per MD pt does not need home O2.
Pt is aware, expressed her agreement and she requested a nebulizer be delivered to her home today.
CM placed on order for a nebulizer with Albuterol treatment with [facility] and it will be delivered to pt's home today.
D/C plan: home with nebulizer machine and family support. Daughter to transport
[2024-10-30 11:17] LABS: Glucose - Point of Care 369 mg/dl (70-99)
[2024-10-30 12:40] VITALS: O2SAT 93
--- NOTE | 2024-10-30 12:47 | W.DS.TRANS ---
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
-
Discharge Instructions:
Discharge Diagnosis/Procedures acute COPD Exacerbation
Diet Regular
Activity As tolerated
Driving Restrictions As prior to admission
Bathing Restrictions None
Instructions:
Stand-Alone Forms:
Changes to Home Medications: Yes
Discharge Medications:
DC Medications w/original date entered in [employer]
lisinopril 10 mg tablet 10 mg PO HS Blood pressure 08/13/21
metformin 500 mg tablet,extended release 24 hr 1,500 mg PO QPM Diabetes 08/13/21
multivitamin with folic acid 400 mcg tablet (Tab-A-Bolivar) 1 tab PO DAILY Supplement 08/13/21
escitalopram oxalate 10 mg tablet (Lexapro) 10 mg PO DAILY 10/29/24
rosuvastatin 10 mg tablet (Crestor) 10 mg PO DAILY High Cholesterol 10/29/24
albuterol sulfate 1.25 mg/3 mL solution for nebulization 1.25 mg (3 mL) inhalation QID PRN shortness of breath or wheezing #75 mL 10/30/24
albuterol sulfate 90 mcg/actuation aerosol inhaler 2 puff inhalation Q6H PRN shortness of breath or wheezing #6.7 grams 10/30/24
azithromycin 250 mg tablet 250 mg PO DAILY@2200 #5 tabs 10/30/24
fluticasone fur. 200 mcg-umeclid 62.5 mcg-vilant 25 mcg inhalat.powder (Trelegy Ellipta) 1 inh inhalation R DAILY 10/30/24
guaifenesin 600 mg tablet, extended release 12 hr 600 mg PO Q12 #30 tabs 10/30/24
prednisone 10 mg tablet 10 mg PO DIRECTED #30 tabs 10/30/24
Home Medication Changes
Take prednisone course as prescribed: 40mg x 3 days then 30mg x 3 days then 20mg x 3 days then 10mg x 3 days
Stop prior antibiotic. You are prescribed 5 more days of Azithromycin.
You are prescribed albuterol nebulizer and inhaler
Pending Results: No
[2024-10-30] MEDS: NOVOLOG FLEXPEN-LOW RESISTANCE 5 UNITS SC (12:53)
--- NOTE | 2024-10-30 13:08 | W.DCSUMMARY ---
Discharge Summary
Discharge Data
Date of Admission: 10/28/24
Date of Discharge: 10/30/24
-
Pending Results: No
Hospital Course
Discharging Physician : Dr. Meaghan Dubois
Disposition : Home
Primary care physician : Dr. Tameka Foster
Principal Discharge diagnosis : Acute COPD
Hospital Course :
Ms. Mayra Davis is a 64 yo woman with hx COPD, [id number]-[id number] smoking hx (quit 2019), PE (now off AC) presents to the ER with progressive shortness of breath. SpO2 mid 80's on room air. Labs within normal limits. Chest CT without PT, finding of
nonspecific ground glass opacity and 1cm slightly irregular subpleural nodule. She was admitted to medicine with Pulmonary consulting for acute COPD exacerbation.
Patient was given IV steroids, nebulizers. Symptoms improved and her O2 saturations are stable at rest and exertion on RA prior to DC. She is discharged on a slow Prednisone taper and with a new prescription for home nebulizer. She is also
prescribed a course of Azithromycin. She will follow up as outpatient with Pulmonary. She will need follow up imaging for nodule seen on chest CT.
Time spent on discharge was 31 minutes.
Important imaging findings :
CT Chest
IMPRESSION:
No evidence of central pulmonary embolism.
Approximate 1 cm slightly irregular subpleural nodule in the posterior left upper lobe apex for which malignancy cannot be excluded. Recommend PET scan with dual point imaging.
Small nonspecific areas of groundglass opacity in the upper lobes bilaterally. These may be below the limits of resolution of PET imaging.
Procedure findings :
Discharge Plan
-
Patient Disposition: Home (Routine Discharge)
Discharge Diagnosis/Procedures: acute COPD Exacerbation
Diet: Regular
Activity: As tolerated
Driving Restrictions: As prior to admission
Bathing Restrictions: None
Others Tests: repeat imaging to follow pulmonary nodule to be ordered as outpatient
Referrals:
Antonio Keane MD [Active] -
(CIVIL STRUCTURAL DESIGNER or [facility] follow up in 2 weeks post dc
[facility]ya f/u in 2-3 mo with full PFT and CT chest ION)
Tameka Foster MD [Family Provider] - in less than 1 week
Additional Discharge Medication Instructions: Take prednisone course as prescribed: 40mg x 3 days then 30mg x 3 days then 20mg x 3 days then 10mg x 3 days
Stop prior antibiotic. You are prescribed 5 more days of Azithromycin.
You are prescribed albuterol nebulizer and inhaler
Prescriptions:
New
guaifenesin 600 mg Tablet Extended Release 12hr
600 mg PO Q12 Qty: 30 0RF
azithromycin 250 mg Tablet
250 mg PO DAILY@2200 Qty: 5 0RF
prednisone 10 mg tablet
10 mg PO DIRECTED Qty: 30 0RF
Rx Instructions:
Take 40mg (4 tabs)x3 days; 30mg(3 tabs)x 3 days; 20mg(2 tabs) x 3 days; 10mg(1 tab) x 3 days
albuterol sulfate 1.25 mg/3 mL solution for nebulization
1.25 mg inhalation QID PRN (Reason: shortness of breath or wheezing) Qty: 75 0RF
albuterol sulfate 90 mcg/actuation HFA aerosol inhaler
2 puff inhalation Q6H PRN (Reason: shortness of breath or wheezing) Qty: 6.7 0RF
Continued
lisinopril 10 MG tablet
10 mg PO HS
metformin 500 MG tablet extended release 24 hr
1,500 mg PO QPM
multivitamin with folic acid [Tab-A-Bolivar] 1 TABLET tablet
1 tab PO DAILY
rosuvastatin [Crestor] 10 mg Tablet
10 mg PO DAILY
escitalopram oxalate [Lexapro] 10 mg Tablet
10 mg PO DAILY
Trelegy Ellipta 200-62.5-25 mcg Blister With Device
1 inh INHALATION R DAILY
Discontinued
cefprozil 500 mg Tablet
500 mg PO BID
Rx Instructions:
take for 10 days starting 10/24/24
Discharge Orders:
Discharge Patient (As Directed); Ordered 10/30/24
Ordered By: Meaghan Dubois
Discharge Date and Time
Print Language: [id number]
== END 2024-10-30 14:31 | disposition home or self-care (01) | DRG 192 ==
LOC: 1 ACUTE 22:07
PROVIDERS: ADMITTING PHYSICIAN Internal Medicine; ATTENDING PHYSICIAN Student in an Organized Health Care Education/Training Program; EMERGENCY PHYSICIAN Emergency Medicine; FAMILY PHYSICIAN Family Medicine; OTHER PHYSICIAN Internal Medicine Critical Care Medicine
DX: J44.1 Chronic obstructive pulmonary disease with (acute) exacerbation (principal); Z86.711 Personal history of pulmonary embolism; I10 Essential (primary) hypertension; E78.00 Pure hypercholesterolemia, unspecified; Z11.52 Encounter for screening for COVID-19; Z87.891 Personal history of nicotine dependence; E11.9 Type 2 diabetes mellitus without complications; Z90.49 Acquired absence of other specified parts of digestive tract; R91.1 Solitary pulmonary nodule; Z80.8 Family history of malignant neoplasm of other organs or systems; Z79.84 Long term (current) use of oral hypoglycemic drugs; R09.02 Hypoxemia; Z80.3 Family history of malignant neoplasm of breast; Z82.49 Family history of ischemic heart disease and other diseases of the circulatory system; Z82.5 Family history of asthma and other chronic lower respiratory diseases; Z86.718 Personal history of other venous thrombosis and embolism; Z87.01 Personal history of pneumonia (recurrent); Z91.199 Patient's noncompliance with other medical treatment and regimen due to unspecified reason
CPT/HCPCS: 71275; 80048; 80053; 82962; 85025; 87070; 87205; 87502; 87811; 93005; 94640; 96361; 96374; 99285; Q9967